=== PATIENT | male | born 1960 | race Caucasian/White ===

== ENCOUNTER 2019-06-14 09:32 | Emergency (ER) | payer OTHER ==
[~2019-06-14] VITALS: Ht 180.3 cm; Wt 113.4 kg
[2019-06-14] MEDS ORDERED: MORPHINE SULFATE 4 MG/ML SYR/VIAL IV ONE ×2 (11:15→17:00)
[2019-06-14] MEDS ORDERED: ONDANSETRON HCL 4 MG/2 ML VIAL IV ONE ×3 (11:15→19:15)
[2019-06-14] MEDS ORDERED: SODIUM CHLORIDE 0.9% 1,000 ML IV ONE ×2 (11:46)
[2019-06-14 13:14] LABS: Basophils # (auto) 0 uL; Basophils % (auto) 0.3 % (0.0-2.0); Eosinophils # (auto) 0 uL; Eosinophils % (auto) 0.3 % (0.0-7.0); Hematocrit 47.8 % (41.0-53.0); Hemoglobin 16.9 g/dL (13.5-17.5); Lymphocytes # (auto) 2.8 uL; Lymphocytes % (auto) 28.9 % (10.0-50.0); Mean Corpuscular Hemoglobin 33.3 pg (28.0-32.0); Mean Corpuscular Hgb Conc. 35.3 g/dL (32.0-36.0); Mean Corpuscular Volume 94.6 fL (80.0-100.0); Monocytes # (auto) 0.5 uL; Monocytes % (auto) 5.2 % (0.0-12.0); Neutrophils # (auto) 6.3 uL; Neutrophils % (auto) 65.3 % (37.0-80.0); Platelet Count (auto) 186 10^3/uL (140-450); Red Blood Cells 5.06 10^6/uL (4.5-5.90); Red Cell Distribution Width 13.2 % (11.8-14.3); White Blood Cell 9.7 10^3/uL (4.4-10.8)
[2019-06-14 13:26] LABS: Albumin 4.1 g/dL (3.4-5.0); Anion Gap 4 (5-15); Blood Urea Nitrogen 16 mg/dL (7-18); Calcium 8.9 mg/dL (8.5-10.1); Carbon Dioxide 27 mmol/L (21-32); Chloride 109 mmol/L (98-107); Glucose 93 mg/dL (74-106); Potassium 4.1 mmol/L (3.5-5.1); Sodium 140 mmol/L (136-145)
[2019-06-14 13:31] LABS: INR 1.03 (0.9-1.15); Partial Thromboplastin Time 26.2 sec (23.64-32.05)
[2019-06-14 13:33] LABS: Alanine Aminotransferase 37 U/L (16-61); Alkaline Phosphatase 96 U/L (45-117); Aspartate Aminotransferase 31 U/L (15-37); BUN/Creatinine Ratio 16.3; Bilirubin, Total 0.8 mg/dL (0.2-1.0); GFR African American 101 mL/min; GFR Non-African American 83 mL/min; Total Protein 8.1 g/dL (6.4-8.2)
[2019-06-14 18:00] VITALS: BP 134/86
[2019-06-14] MEDS ORDERED: HYDROmorphone HCL 2 MG/ML VL IV ONE (19:15)
== END 2019-06-14 18:30 | disposition short-term general hospital (02) ==
LOC: EDBD 09:32 → ER 09:44
DX: S42.302A Unspecified fracture of shaft of humerus, left arm, initial encounter for closed fracture (principal); E78.5 Hyperlipidemia, unspecified; W01.0XXA Fall on same level from slipping, tripping and stumbling without subsequent striking against object, initial encounter; Y93.89 Activity, other specified; Y99.8 Other external cause status; Y92.89 Other specified places as the place of occurrence of the external cause
CPT/HCPCS: 36415; 71045; 73060; 80053; 84484; 85025; 85610; 85730; 96374; 96375; 96376; 99285; J2270; J2405